=== PATIENT | female | born 1985 | race Caucasian/White ===

== ENCOUNTER 2017-08-08 13:56 | Emergency (ER) | payer MEDICAID ==
[~2017-08-08] VITALS: Ht 162.6 cm; Wt 67.0 kg
[2017-08-08 15:05] VITALS: BP 126/70
[2017-08-08 15:36] LABS: CLARITY URINE CLEAR (CLEAR); COLOR URINE YELLOW (YELLOW); KETONES URINE NEGATIVE (NEGATIVE); LEUKOCYTE ESTERASE URINE NEGATIVE (NEGATIVE); NITRITE URINE NEGATIVE (NEGATIVE); OCCULT BLOOD URINE NEGATIVE (NEGATIVE); PH URINE 6.5 (4.5-8.0); PROTEIN URINE NEGATIVE (NEGATIVE); SPECIFIC GRAVITY URINE 1.006 (1.005-1.030); UROBILINOGEN URINE 0.2 E.U./dL (0.2-1.0)
== END 2017-08-08 16:58 | disposition left against medical advice (07) ==
LOC: ER 16:56
DX: M54.5 Low back pain (principal)
CPT/HCPCS: 81003; 81025; 99283; Z7610